=== PATIENT | female | born 1985 | race American Indian/Alaskan Native ===

== ENCOUNTER 2022-01-20 22:54 | Emergency (ER) | payer SELFPAY ==
[2022-01-20] MEDS ORDERED: Ketorolac 30 MG/ML SDV IM ONE (23:12)
[2022-01-20] MEDS ORDERED: Acetaminophen 500 MG Tab PO ONE (23:13)
[2022-01-20] MEDS ORDERED: Ondansetron 4 MG Tab.DIS PO ONE (23:13)
== END 2022-01-21 00:40 | disposition home or self-care (01) ==
LOC: FB.ED 22:54
DX: S20.212A Contusion of left front wall of thorax, initial encounter (principal); W51.XXXA Accidental striking against or bumped into by another person, initial encounter
CPT/HCPCS: 71101; 96372; 99283; A9270; J1885; Q0162; 99282